=== PATIENT | female | born 1980 | race Two or more races ===

== ENCOUNTER 2022-03-30 12:21 | Emergency (ER) | payer OTHER ==
[~2022-03-30] VITALS: Ht 160 cm; Wt 43.0 kg
[2022-03-30 13:19] VITALS: BP 114/48
[2022-03-30 13:39] LABS: BUN/Creatinine Ratio 18.8; Potassium 3.9 mmol/L (3.5-5.1)
[2022-03-30 14:39] LABS: Urine Bacteria FEW /hpf (None Seen); Urine Blood Negative /uL (Negative); Urine Specific Gravity 1.009 (1.001-1.035); Urine WBC 1 /hpf (0 - 5)
[2022-03-30 15:12] LABS: Basophils # (auto) 0 10 ^3/uL (0-0.2); Basophils % (auto) 0.7 % (0.0-2.0); Eosinophils # (auto) 0 10 ^3/uL (0-0.8); Hematocrit 30.2 % (36.0-46.0); Hemoglobin 8.8 g/dL (12.2-16.2); Lymphocytes # (auto) 0.8 10 ^3/uL (0.4-5.4); Lymphocytes % (auto) 18.6 % (10.0-50.0); Mean Corpuscular Hemoglobin 18.9 pg (28.0-32.0); Mean Corpuscular Hgb Conc. 29.1 g/dL (32.0-36.0); Mean Corpuscular Volume 65.2 fL (80.0-100.0); Monocytes # (auto) 0.2 10 ^3/uL (0-1.3); Neutrophils # (auto) 3.1 10 ^3/uL (1.6-8.6); Neutrophils % (auto) 75.7 % (37.0-80.0); Nucleated Red Blood Cells % 0.2 %; Red Blood Cells 4.64 10^6/uL (4.0-5.20); Red Cell Distribution Width 18.9 % (11.8-14.3)
[2022-03-30] MEDS ORDERED: FER325T PO (15:18)
== END 2022-03-30 15:21 | disposition home or self-care (01) ==
LOC: ER 12:21
DX: D64.9 Anemia, unspecified (principal); R00.2 Palpitations; Z88.1 Allergy status to other antibiotic agents; Z88.0 Allergy status to penicillin
CPT/HCPCS: 36415; 80048; 81001; 84443; 84484; 85025; 93005